=== PATIENT | female | born 1980 | race African-American/Black ===

== ENCOUNTER 2024-05-09 14:35 | Outpatient (CLI) | payer OTHER, SELFPAY | END 2024-05-09 14:36 | disposition home or self-care (01) | LOC: ANHAUDIO 14:37 | PROVIDERS: PCP Family Medicine; Visit Provider Otolaryngology | DX: H69.93 Unspecified Eustachian tube disorder, bilateral (principal) | CPT/HCPCS: 92557; 92567 ==